=== PATIENT | male | born 1980 | race Caucasian/White ===

== ENCOUNTER 2023-08-19 21:07 | Inpatient (IN) | payer OTHER ==
[~2023-08-19] VITALS: Ht 193 cm; Wt 186.4 kg
[2023-08-19 21:35] VITALS: BP_SYST 164; PULSE 71; RESP 18; TEMP 98.3; O2SAT 98
[2023-08-19] MEDS: NS 1000 ML IV.SOLN IV ONE (22:09)
[2023-08-19 22:17] LABS: BASOPHILS # (AUTO) 0.1 K/uL (0.0-0.2); BASOPHILS % (AUTO) 0.5 % (0.0-2.0); EOSINOPHILS # (AUTO) 0.2 K/uL (0.0-0.4); EOSINOPHILS % (AUTO) 1.7 % (0.0-4.0); HEMATOCRIT 38.1 % (36-54); LYMPHOCYTES # (AUTO) 2.4 K/uL (1.0-5.5); LYMPHOCYTES % (AUTO) 22.3 % (20.5-51.5); MEAN CORPUSCULAR HEMOGLOBIN 29 pg (27-31); MEAN CORPUSCULAR HGB CONC 34 % (32-36); MEAN CORPUSCULAR VOLUME 86 fL (79.0-98.0); MONOCYTES # (AUTO) 0.6 K/uL (0.0-1.0); MONOCYTES % (AUTO) 5.9 % (1.7-9.3); NEUTROPHILS # (AUTO) 7.6 K/uL (1.8-7.7); NEUTROPHILS % (AUTO) 69.6 % (40.0-70.0); PLATELET COUNT (AUTO) 345 K/uL (130-430); RED BLOOD CELL COUNT(AUTO) 4.42 MIL/uL (4.2-6.2); RED CELL DISTRIBUTION WIDTH 13.4 % (9.0-15.0); WHITE BLOOD COUNT (AUTO) 10.9 K/uL (4.8-10.8)
[2023-08-19 22:38] LABS: INR 1.2 (0.80-1.20); PROTHROMBIN TIME 12.3 SECS (9.5-12.5)
[2023-08-19 22:49] LABS: ALANINE AMINOTRANSFERASE 17 U/L (12-78); ALBUMIN 2.8 g/dL (3.4-4.8); ANION GAP 11 (5-15); ASPARTATE AMINOTRANSFERASE 9 U/L (10-37); BILIRUBIN,DIRECT 0.1 mg/dL (0.0-0.3); CALCIUM 8.9 mg/dL (8.4-11.0); CARBON DIOXIDE 24 mmol/L (23-29); CHLORIDE 103 mmol/L (98-107); CREATININE 1.01 mg/dL (0.55-1.30); GFR AFRICAN AMERICAN 104 mL/min (>90); GFR NON AFRICAN-AMERICAN 86 mL/min (>90); GLUCOSE 271 mg/dL (74-106); POTASSIUM 4.1 mmol/L (3.5-5.1); SODIUM SERUM 138 mmol/L (136-145); TOTAL BILIRUBIN 0.3 mg/dL (0.0-1.0); TOTAL PROTEIN, SERUM 8.2 g/dL (6.4-8.3); UREA NITROGEN, BLOOD 9 mg/dL (8-21)
[2023-08-19] MEDS ORDERED: PIPERACILLIN/TAZOBACTAM 3.375 GM/VIAL (ZOSYN) IV ONE (23:01)
[2023-08-19] MEDS ORDERED: VANCOMYCIN HCL 1000 MG/VIAL IV ONE (23:01)
[2023-08-19] MEDS: PIPERACILLIN/TAZO 3.375 GM in NS 50 ML IV ONE (23:14)
[2023-08-19] MEDS: VANCOMYCIN HCL 1,000 MG in NS 250 ML IV ONE (23:18)
[2023-08-20 01:05] LABS: BILIRUBIN,URINE NEGATIVE (NEGATIVE); BLOOD, URINE NEGATIVE (NEGATIVE); CLARITY/URINE CLEAR (CLEAR); COLOR,URINE YELLOW (YELLOW); GLUCOSE,URINE 2+ (NEGATIVE); KETONES,URINE TRACE (NEGATIVE); LEUKOCYTE ESTERASE ,URINE NEGATIVE (NEGATIVE); NITRITE, URINE NEGATIVE (NEGATIVE); PROTEIN URINE NEGATIVE (NEGATIVE); UROBILINOGEN,URINE 0.2 (0.2-1.0)
[2023-08-20] MEDS: HYDROcodone/ACETAMIN 5-325 MG TAB (NORCO/ VICODIN) PO PRN (03:55)
[2023-08-20] MEDS: METOPROLOL TARTRATE 5 MG/5 ML VIAL IVP ONE (04:06)
[2023-08-20] MEDS: METOPROLOL TARTRATE 25 MG TABLET PO ONE (04:07)
[2023-08-20 07:01] LABS: BARBITURATE, URINE NEGATIVE (NEG <=200); BENZODIAZEPINE, URINE POSITIVE (NEG <=150); CANNABINOID, URINE POSITIVE (NEG <=50); COCAINE, URINE NEGATIVE (NEG <=150); METHAMPHETAMINES SCREEN,URINE NEGATIVE (NEG <=500); OPIATE, URINE NEGATIVE (NEG <=100); PHENCYCLIDINE SCREEN,URINE NEGATIVE (NEG <=25); UR TRICYCLIC ANTIDEPRESSANTS NEGATIVE (NEG <=300); URINE AMPHETAMINE NEGATIVE (NEG <=500); URINE METHADONE NEGATIVE (NEG <=200); URINE OXYCODONE SCREEN NEGATIVE (NEG <=100)
[2023-08-20] MEDS ORDERED: LORazepam 2 MG/ML VIAL IVP PRN (08:00)
[2023-08-20] MEDS ORDERED: ZOLPIDEM TARTRATE 5 MG TABLET PO PRN (08:00)
[2023-08-20] MEDS ORDERED: POTASSIUM CHLORIDE 20 MEQ TABLET.ER PO PRN (08:00)
[2023-08-20] MEDS ORDERED: ACETAMINOPHEN 325 MG TABLET PO PRN (08:00)
[2023-08-20] MEDS ORDERED: ONDANSETRON HCL 4 MG/2 ML VIAL IVP PRN (08:00)
[2023-08-20] MEDS ORDERED: MUPIROCIN 2% TOPICAL OINTMENT 22 GM NS PRN (08:00)
[2023-08-20] MEDS ORDERED: MORPHINE 2 MG/ML INJ. SYRINGE IVP PRN (08:00)
[2023-08-20] MEDS ORDERED: NALOXONE HCL 0.4 MG/ML AMP (NARCAN) IVP PRN ×2 (08:00)
[2023-08-20] MEDS ORDERED: MAGNESIUM SULFATE 50 ML IV PRN (08:00)
[2023-08-20] MEDS: NACL 0.9% 1,000 ML IV SCH (08:15)
[2023-08-20] MEDS ORDERED: INSULIN REGULAR, HUMAN 10 UNITS/0.1 ML, 3 ML VIAL ONE ×2 (08:18→11:47)
[2023-08-20] MEDS: INSULIN REGULAR, HUMAN 100 UNITS/ML, 3 ML VIAL (humuLIN R) SUBCUT PRN (08:22)
[2023-08-20] MEDS ORDERED: PIPERACILLIN/TAZOBACTAM 3.375 GM/VIAL (ZOSYN) IV ONE (12:28)
[2023-08-20] MEDS: PIPERACILLIN/TAZO 3.375 GM in D5W 50 ML IV SCH (12:29)
[2023-08-20] MEDS: VANCOMYCIN HCL 1,750 MG in NS 500 ML IV SCH (13:14)
[2023-08-20 16:46] VITALS: BP_SYST 156; PULSE 65; RESP 16; TEMP 98.1; O2SAT 99
[2023-08-20 19:37] VITALS: O2SAT 98
[2023-08-20 20:30] VITALS: BP_SYST 140; PULSE 65; RESP 18; TEMP 97.9
[2023-08-20 20:46] VITALS: BP_SYST 148; PULSE 69; RESP 18; TEMP 97.2
[2023-08-20] MEDS ORDERED: DOCUSATE SODIUM 100 MG CAPSULE PO PRN (21:00)
[2023-08-20] MEDS: METOPROLOL TARTRATE 25 MG TABLET PO SCH (21:22)
[2023-08-21] VITALS (7 sets, daily range): BP systolic 129–148; PULSE 60–71; RESP 16–22; TEMP 97.1–98.2; O2SAT 94–100
[2023-08-21 05:22] LABS: BASOPHILS % (AUTO) 0.4 % (0.0-2.0); EOSINOPHILS # (AUTO) 0.2 K/uL (0.0-0.4); EOSINOPHILS % (AUTO) 2.1 % (0.0-4.0); HEMATOCRIT 34.8 % (36-54); HEMOGLOBIN 11.4 g/dL (14.0-18.0); LYMPHOCYTES # (AUTO) 2.1 K/uL (1.0-5.5); LYMPHOCYTES % (AUTO) 22.4 % (20.5-51.5); MEAN CORPUSCULAR HEMOGLOBIN 29 pg (27-31); MEAN CORPUSCULAR HGB CONC 33 % (32-36); MEAN CORPUSCULAR VOLUME 88 fL (79.0-98.0); MONOCYTES # (AUTO) 0.6 K/uL (0.0-1.0); MONOCYTES % (AUTO) 6.2 % (1.7-9.3); NEUTROPHILS # (AUTO) 6.3 K/uL (1.8-7.7); NEUTROPHILS % (AUTO) 68.9 % (40.0-70.0); PLATELET COUNT (AUTO) 302 K/uL (130-430); RED BLOOD CELL COUNT(AUTO) 3.94 MIL/uL (4.2-6.2); RED CELL DISTRIBUTION WIDTH 13.2 % (9.0-15.0); WHITE BLOOD COUNT (AUTO) 9.2 K/uL (4.8-10.8)
[2023-08-21 06:23] LABS: CALCIUM 8.4 mg/dL (8.4-11.0); CREATININE 0.77 mg/dL (0.55-1.30); FREE T4 (FREE THYROXINE) 1.5 ng/dl (0.8-1.5); POTASSIUM 3.9 mmol/L (3.5-5.1); THYROID STIMULATING HORMONE 2.94 uIu/mL (0.36-3.74)
[2023-08-21] MEDS: BALSAM PERU/CASTOR OIL 56.7 GM OINT...G. TP SCH (09:45)
[2023-08-22] VITALS (7 sets, daily range): BP systolic 140–161; PULSE 57–71; RESP 17–20; TEMP 98–98.5; O2SAT 95–100
[2023-08-22 05:55] LABS: BASOPHILS % (AUTO) 0.5 % (0.0-2.0); EOSINOPHILS # (AUTO) 0.2 K/uL (0.0-0.4); HEMOGLOBIN 11.6 g/dL (14.0-18.0); LYMPHOCYTES # (AUTO) 2.4 K/uL (1.0-5.5); MEAN CORPUSCULAR HEMOGLOBIN 29 pg (27-31); MEAN CORPUSCULAR HGB CONC 33 % (32-36); MEAN CORPUSCULAR VOLUME 87 fL (79.0-98.0); MONOCYTES # (AUTO) 0.5 K/uL (0.0-1.0); MONOCYTES % (AUTO) 5.6 % (1.7-9.3); NEUTROPHILS # (AUTO) 6.1 K/uL (1.8-7.7); NEUTROPHILS % (AUTO) 65.9 % (40.0-70.0); PLATELET COUNT (AUTO) 314 K/uL (130-430); RED BLOOD CELL COUNT(AUTO) 4.01 MIL/uL (4.2-6.2); WHITE BLOOD COUNT (AUTO) 9.3 K/uL (4.8-10.8)
[2023-08-22 06:00] LABS: CALCIUM 8.8 mg/dL (8.4-11.0); CREATININE 0.83 mg/dL (0.55-1.30); POTASSIUM 4.1 mmol/L (3.5-5.1)
[2023-08-22 06:23] LABS: INR 1.1 (0.80-1.20); PROTHROMBIN TIME 11.8 SECS (9.5-12.5)
[2023-08-22] MEDS ORDERED: PROPOFOL 200MG/ 20ML VIAL (DIPRIVAN) IV ONE (17:20)
[2023-08-22] MEDS ORDERED: IBUPROFEN 800 MG TABLET PO PRN (18:15)
[2023-08-22] MEDS ORDERED: ONDANSETRON HCL 4 MG/2 ML VIAL IVP PRN (18:15)
[2023-08-22] MEDS ORDERED: NALOXONE HCL 0.4 MG/ML AMP (NARCAN) IVP PRN (18:15)
[2023-08-22] MEDS ORDERED: HYDROmorphone 1 MG/ML INJ. CARTRIDGE IVP PRN (18:15)
[2023-08-22] MEDS: MORPHINE 2 MG/ML INJ. SYRINGE IVP PRN (22:18)
[2023-08-23 04:00] VITALS: BP_SYST 167; PULSE 69; RESP 18; TEMP 98.3; O2SAT 98
[2023-08-23 08:40] VITALS: BP_SYST 146; PULSE 68; RESP 20; TEMP 98.4; O2SAT 97
[2023-08-23 08:59] LABS: BASOPHILS # (AUTO) 0.1 K/uL (0.0-0.2); BASOPHILS % (AUTO) 0.5 % (0.0-2.0); EOSINOPHILS # (AUTO) 0.2 K/uL (0.0-0.4); EOSINOPHILS % (AUTO) 1.5 % (0.0-4.0); HEMATOCRIT 35.2 % (36-54); HEMOGLOBIN 11.7 g/dL (14.0-18.0); LYMPHOCYTES # (AUTO) 1.5 K/uL (1.0-5.5); LYMPHOCYTES % (AUTO) 14.9 % (20.5-51.5); MEAN CORPUSCULAR HEMOGLOBIN 29 pg (27-31); MEAN CORPUSCULAR HGB CONC 33 % (32-36); MEAN CORPUSCULAR VOLUME 88 fL (79.0-98.0); MONOCYTES # (AUTO) 0.6 K/uL (0.0-1.0); MONOCYTES % (AUTO) 5.8 % (1.7-9.3); NEUTROPHILS # (AUTO) 7.8 K/uL (1.8-7.7); NEUTROPHILS % (AUTO) 77.3 % (40.0-70.0); PLATELET COUNT (AUTO) 316 K/uL (130-430); RED BLOOD CELL COUNT(AUTO) 4.02 MIL/uL (4.2-6.2); RED CELL DISTRIBUTION WIDTH 13.2 % (9.0-15.0); WHITE BLOOD COUNT (AUTO) 10.1 K/uL (4.8-10.8)
[2023-08-23 09:05] LABS: CALCIUM 8.7 mg/dL (8.4-11.0); CREATININE 0.83 mg/dL (0.55-1.30); POTASSIUM 4.1 mmol/L (3.5-5.1)
[2023-08-23 11:04] VITALS: BP_SYST 138; PULSE 86; RESP 20; TEMP 97.6; O2SAT 99
[2023-08-23 16:02] VITALS: BP_SYST 131; PULSE 64; RESP 16; TEMP 97.8; O2SAT 97
[2023-08-23 20:00] VITALS: BP_SYST 140; PULSE 60; RESP 18; TEMP 98; O2SAT 95
[2023-08-23] MEDS: INSULIN GLARGINE 100 UNITS/ML, 10 ML VIAL SUBCUT SCH (22:14)
[2023-08-24 00:02] VITALS: BP_SYST 139; PULSE 60; RESP 18; TEMP 98; O2SAT 95
[2023-08-24 06:42] LABS: BASOPHILS # (AUTO) 0.1 K/uL (0.0-0.2); BASOPHILS % (AUTO) 0.6 % (0.0-2.0); EOSINOPHILS # (AUTO) 0.3 K/uL (0.0-0.4); EOSINOPHILS % (AUTO) 2.6 % (0.0-4.0); HEMOGLOBIN 11.2 g/dL (14.0-18.0); LYMPHOCYTES # (AUTO) 1.9 K/uL (1.0-5.5); MEAN CORPUSCULAR HEMOGLOBIN 29 pg (27-31); MEAN CORPUSCULAR HGB CONC 33 % (32-36); MEAN CORPUSCULAR VOLUME 87 fL (79.0-98.0); MONOCYTES # (AUTO) 0.6 K/uL (0.0-1.0); MONOCYTES % (AUTO) 5.9 % (1.7-9.3); NEUTROPHILS # (AUTO) 6.8 K/uL (1.8-7.7); NEUTROPHILS % (AUTO) 70.9 % (40.0-70.0); PLATELET COUNT (AUTO) 312 K/uL (130-430); RED BLOOD CELL COUNT(AUTO) 3.91 MIL/uL (4.2-6.2); WHITE BLOOD COUNT (AUTO) 9.6 K/uL (4.8-10.8)
[2023-08-24 07:03] LABS: CALCIUM 8.7 mg/dL (8.4-11.0); CREATININE 0.83 mg/dL (0.55-1.30)
[2023-08-24 08:00] VITALS: BP_SYST 146; PULSE 63; RESP 18; TEMP 97.5; O2SAT 100
[2023-08-24 09:28] VITALS: O2SAT 100
[2023-08-24 12:32] VITALS: BP_SYST 148; PULSE 50; RESP 20; TEMP 96.8; O2SAT 99
[2023-08-24] MEDS ORDERED: D5W 1,000 ML IV PRN (15:15)
[2023-08-24] MEDS ORDERED: DEXTROSE 50%-WATER 50 ML DISP.SYRIN IVP PRN (15:15)
[2023-08-24] MEDS ORDERED: GLUCOSE (DEXTROSE) ORAL GEL -Adults PO PRN (15:15)
[2023-08-24 16:05] VITALS: BP_SYST 142; PULSE 62; RESP 17; TEMP 97.8; O2SAT 97
[2023-08-24] MEDS: INSULIN Lispro 100 UNITS/ML, 3 ML VIAL (humaLOG) SUBCUT SCH (16:35)
[2023-08-24 20:00] VITALS: BP_SYST 131; BP_SYST 151; PULSE 71; PULSE 74; RESP 18; TEMP 98.2; O2SAT 97
[2023-08-24] MEDS: INSULIN LISPRO SLIDING SCALE 100 UNITS/ML, 3 ML VIAL (humaLOG) SUBCUT PRN (21:30)
[2023-08-25] VITALS: BP_SYST 140; PULSE 72; RESP 18; TEMP 97.6; O2SAT 95
[2023-08-25 06:40] LABS: BASOPHILS # (AUTO) 0.1 K/uL (0.0-0.2); BASOPHILS % (AUTO) 0.9 % (0.0-2.0); CALCIUM 9.1 mg/dL (8.4-11.0); CREATININE 0.81 mg/dL (0.55-1.30); EOSINOPHILS # (AUTO) 0.3 K/uL (0.0-0.4); EOSINOPHILS % (AUTO) 3.3 % (0.0-4.0); HEMATOCRIT 37.9 % (36-54); HEMOGLOBIN 12.7 g/dL (14.0-18.0); LYMPHOCYTES # (AUTO) 2.2 K/uL (1.0-5.5); LYMPHOCYTES % (AUTO) 23.5 % (20.5-51.5); MEAN CORPUSCULAR HEMOGLOBIN 29 pg (27-31); MEAN CORPUSCULAR HGB CONC 34 % (32-36); MEAN CORPUSCULAR VOLUME 87 fL (79.0-98.0); MONOCYTES # (AUTO) 0.6 K/uL (0.0-1.0); MONOCYTES % (AUTO) 6.5 % (1.7-9.3); NEUTROPHILS % (AUTO) 65.8 % (40.0-70.0); PLATELET COUNT (AUTO) 345 K/uL (130-430); POTASSIUM 4.1 mmol/L (3.5-5.1); RED BLOOD CELL COUNT(AUTO) 4.37 MIL/uL (4.2-6.2); RED CELL DISTRIBUTION WIDTH 13.4 % (9.0-15.0); WHITE BLOOD COUNT (AUTO) 9.1 K/uL (4.8-10.8)
[2023-08-25 07:58] VITALS: BP_SYST 119; PULSE 69; RESP 16; TEMP 96.6; O2SAT 99
[2023-08-25 10:24] VITALS: O2SAT 99
[2023-08-25 11:01] VITALS: BP_SYST 129; PULSE 55; RESP 18; TEMP 97.9; O2SAT 100
[2023-08-25 16:00] VITALS: BP_SYST 128; PULSE 59; RESP 18; TEMP 98; O2SAT 100
[2023-08-25 20:00] VITALS: BP_SYST 138; PULSE 68; RESP 18; TEMP 98.1; O2SAT 97
[2023-08-25] MEDS: PIPERACILLIN/TAZO 3.375 GM in NS 50 ML IV SCH (22:15)
[2023-08-26 00:05] VITALS: BP_SYST 137; PULSE 60; RESP 18; TEMP 98.2; O2SAT 96
[2023-08-26 08:00] VITALS: BP_SYST 133; PULSE 74; RESP 20; O2SAT 97
[2023-08-26 08:56] LABS: BASOPHILS # (AUTO) 0.1 K/uL (0.0-0.2); BASOPHILS % (AUTO) 0.9 % (0.0-2.0); EOSINOPHILS # (AUTO) 0.2 K/uL (0.0-0.4); EOSINOPHILS % (AUTO) 2.3 % (0.0-4.0); HEMATOCRIT 37.4 % (36-54); HEMOGLOBIN 12.5 g/dL (14.0-18.0); LYMPHOCYTES # (AUTO) 1.6 K/uL (1.0-5.5); LYMPHOCYTES % (AUTO) 19.7 % (20.5-51.5); MEAN CORPUSCULAR HEMOGLOBIN 29 pg (27-31); MEAN CORPUSCULAR HGB CONC 34 % (32-36); MEAN CORPUSCULAR VOLUME 87 fL (79.0-98.0); MONOCYTES # (AUTO) 0.5 K/uL (0.0-1.0); MONOCYTES % (AUTO) 5.5 % (1.7-9.3); NEUTROPHILS # (AUTO) 5.9 K/uL (1.8-7.7); NEUTROPHILS % (AUTO) 71.6 % (40.0-70.0); PLATELET COUNT (AUTO) 336 K/uL (130-430); RED BLOOD CELL COUNT(AUTO) 4.29 MIL/uL (4.2-6.2); RED CELL DISTRIBUTION WIDTH 13.5 % (9.0-15.0); WHITE BLOOD COUNT (AUTO) 8.2 K/uL (4.8-10.8)
[2023-08-26 09:03] LABS: CREATININE 0.96 mg/dL (0.55-1.30); POTASSIUM 4.2 mmol/L (3.5-5.1)
[2023-08-26] MEDS ORDERED: APIX5TAB PO (11:00)
[2023-08-26] MEDS ORDERED: GLIP10TA11 PO (11:00)
[2023-08-26] MEDS ORDERED: DOXY-244 PO (11:00)
[2023-08-26] MEDS ORDERED: METO25TA6 PO (11:00)
[2023-08-26] MEDS ORDERED: ROCPM1 IV (11:00)
[2023-08-26] MEDS ORDERED: METF-379 PO (11:00)
[2023-08-26 12:04] VITALS: BP_SYST 135; PULSE 68; RESP 19; TEMP 98; O2SAT 98
[2023-08-26 12:29] VITALS: BP_SYST 135; PULSE 68; RESP 19; TEMP 98; O2SAT 98
[2023-08-26 16:01] VITALS: BP_SYST 134; PULSE 70; RESP 20; TEMP 97; O2SAT 97
== END 2023-08-26 16:10 | disposition home health service (06) | DRG 854 ==
LOC: SED 21:07 → SMU 23:37 → STU 08-20 10:11 → SMU 08-21 12:11
PROVIDERS: ADMIT General Practice; ATTEND General Practice
PROC: 0QBR0ZZ Excision of Left Toe Phalanx, Open Approach (ICD-10-PCS; principal; 2023-08-22 17:26)
DX: A41.9 Sepsis, unspecified organism (principal); L03.116 Cellulitis of left lower limb; M86.8X7 Other osteomyelitis, ankle and foot; Z68.43 Body mass index [BMI] 50.0-59.9, adult; L97.529 Non-pressure chronic ulcer of other part of left foot with unspecified severity; I48.91 Unspecified atrial fibrillation; I10 Essential (primary) hypertension; E66.9 Obesity, unspecified; E11.40 Type 2 diabetes mellitus with diabetic neuropathy, unspecified; E11.621 Type 2 diabetes mellitus with foot ulcer; E11.65 Type 2 diabetes mellitus with hyperglycemia; W54.8XXA Other contact with dog, initial encounter; Z79.4 Long term (current) use of insulin; Z79.84 Long term (current) use of oral hypoglycemic drugs; Z83.3 Family history of diabetes mellitus
CPT/HCPCS: 36415; 71045; 80048; 80076; 80202; 80307; 81001; 81003; 82948; 83037; 83605; 83735; 84439; 84443; 84484; 85025; 85610; 85651; 85730; 86886; 86900; 86901; 87040; 87070; 87075; 87081; 87086; 87186; 88304; 88311; 93005; 93971; 96365; 96368; 99285; G0378; J1815; J2001; J2270; J2543; J2704; J3370; J3490; J7040; J7060; J7120

== ENCOUNTER 2023-09-22 17:56 | Emergency (ER) | payer OTHER ==
[~2023-09-22] VITALS: Ht 193 cm; Wt 181.4 kg
[~2023-09-22 17:56] MED LIST: APIX5TAB PO; DOXY-244 PO; GLIP10TA11 PO; METF-379 PO; METO25TA6 PO; ROCPM1 IV
[2023-09-22 19:00] VITALS: BP_SYST 111; PULSE 83; RESP 18; TEMP 96.9; O2SAT 96
[2023-09-22 22:49] VITALS: BP_SYST 111; PULSE 83; RESP 18; TEMP 96.9; O2SAT 96
== END 2023-09-22 22:49 | disposition home or self-care (01) ==
LOC: SED 17:56
DX: T82.514A Breakdown (mechanical) of infusion catheter, initial encounter (principal); E11.9 Type 2 diabetes mellitus without complications; Z79.899 Other long term (current) drug therapy; Z79.2 Long term (current) use of antibiotics; Y84.8 Other medical procedures as the cause of abnormal reaction of the patient, or of later complication, without mention of misadventure at the time of the procedure; Y92.89 Other specified places as the place of occurrence of the external cause
CPT/HCPCS: 99281

== ENCOUNTER 2023-09-24 10:48 | Emergency (ER) | payer OTHER ==
[~2023-09-24] VITALS: Ht 193 cm; Wt 176.9 kg
[2023-09-24 11:30] LABS: INR 1.1 (0.80-1.20); PROTHROMBIN TIME 11.7 SECS (9.5-12.5)
[2023-09-24 15:49] VITALS: BP_SYST 123; PULSE 62; RESP 24; TEMP 97.3; O2SAT 99
== END 2023-09-24 15:48 | disposition home or self-care (01) ==
LOC: SED 10:48
DX: Z45.2 Encounter for adjustment and management of vascular access device (principal); E11.9 Type 2 diabetes mellitus without complications; Z79.899 Other long term (current) drug therapy; Z79.2 Long term (current) use of antibiotics
CPT/HCPCS: 36415; 71045; 85610; 85730; 99285

== ENCOUNTER 2023-10-02 10:11 | Emergency (ER) | payer OTHER ==
[~2023-10-02] VITALS: Ht 185.4 cm; Wt 176.9 kg
[2023-10-02 10:16] VITALS: BP_SYST 123; PULSE 85; RESP 18; TEMP 98.3; O2SAT 98
[2023-10-02 12:35] VITALS: BP_SYST 123; PULSE 85; RESP 18; TEMP 98.3; O2SAT 98
== END 2023-10-02 13:16 | disposition home or self-care (01) ==
LOC: SED 10:11
DX: T82.524A Displacement of infusion catheter, initial encounter (principal); E11.9 Type 2 diabetes mellitus without complications; Z79.899 Other long term (current) drug therapy; Z79.2 Long term (current) use of antibiotics; Y83.8 Other surgical procedures as the cause of abnormal reaction of the patient, or of later complication, without mention of misadventure at the time of the procedure; Y92.89 Other specified places as the place of occurrence of the external cause
CPT/HCPCS: 71045; 99285